=== PATIENT | male | born 1960 | race Caucasian/White ===

== ENCOUNTER → 2023-09-01 14:12 | Outpatient (REF) | payer SELFPAY | LOC: RAD 14:12 | PROVIDERS: ATTENDING PHYSICIAN Student in an Organized Health Care Education/Training Program | DX: E78.00 Pure hypercholesterolemia, unspecified (principal) | CPT/HCPCS: 75571 ==

== ENCOUNTER → 2023-10-20 06:51 | Day surgery (SDC) | payer BC, SELFPAY | LOC: GI 06:51 | PROVIDERS: ATTENDING PHYSICIAN Specialist | DX: Z12.11 Encounter for screening for malignant neoplasm of colon (principal); K57.30 Diverticulosis of large intestine without perforation or abscess without bleeding; Z86.010 Personal history of colon polyps | CPT/HCPCS: G0105 ==